=== PATIENT | female | born 2000 | race Caucasian/White ===

== ENCOUNTER 2024-09-09 21:42 | Emergency (ER) | payer OTHER, BC, SELFPAY ==
--- OUTSIDE RECORDS SUMMARY | 2024-09-09 21:45 | XMS_ITS | Encounter Summary ---
Author Organization [facility] [place] [address] Care Team Providers Care School Cleaner Name Role Phone Jimbo Lee Primary Care Provider Rony gregory Reason for Visit * Reason Comments Skin Exam * Consultation (Routine) - Incomplete Specialty Diagnoses / Procedures Referred By Trudy goode Referred To Contact Dermatology Diagnoses Atypical nevus Procedures CONSULT TO DERMATOLOGY Juan Antonio Rivas MD [address] [place] [address] Phone: tel: fax: [facility] [address] [place] [address] Phone: tel: fax: Referral ID Status Reason Start Date Expiration Date Visits Requested Visits Authorized [id number] Incomplete Transition of Care (12) 04/17/2024 05/17/2025 1 1 Encounter Details Date Type Department Care Team (Late st Contact Info) Description 08/24/2024 9:30 AM CDT Office Visit [facility] Dermatology Lower Level [address] [place], [place] [id number] Laz Pierre MD [address] [place], [place] [id number] Acne excoriee (Primary Dx); Multiple benign nevi; Impetigo Social History Tobacco Use Types Packs/Day Years Used Date Smoking Tobacco: Never Smokeless Tobacco: Never Alcohol Use Standard Drinks/Week Comments Not Asked 0 (1 standard drink = 0.6 oz pur e alcohol) Financial Resource Strain Answer Date R ecorded Overall Financial Strain 99 022 Skipped Doctor's Visit 3 2 Skipped Medication due to cost 3 0 07/22/2021 Utility Shut-offs 3 07/22/2021 Comments No Sex and Gender Information Value Date Recorded Sex Assigned at Not on file Legal Sex Female 11:01 PM CDT Gender Identity Not on file Sexual Orientation Not on file documented as of this encounter Patient Instructions * Patient Instructions* Nesha Nagel - 08/24/2024 9:30 AM CDT SUN PROTECTION TIPS Recommend a physical block (mineral sunscreen) that contains zinc oxide (SPF 30 or higher). Facial sunscreen: Renan Cleveland MD UV elements broad spectrum SPF 44 facial sunscreen, oil free. Epionce Ultra Shield Lotion SPF 50 (love this one for the face). https://www.epiAnaquace.Ogin Stick sunscreen: Neutrogena Sheer Zinc Vitamin E Sunscreen Stick - SPF 50 (great for sports and kids). Body and face: CeraVe Hydrating Sunscreen SPF 30 or 50 Vanicream Broad Sprectrum SPF 30 (for sensitive skin) Burnout (www.Simpler or YYoga) Keerthi-Posay SPF 50 Mineral Anthelios-Sunscreen gentle lotion Sun Bum (sold in most stores with a pharmacy). Https://www.sunbum.Ogin Exposure to the sun's invisible ultraviolet light (UV) is the most preventable cause of skin cancers, including melanoma, for most people. It is also responsible for skin aging and contributes to skin discoloration over time. Protecting your skin from UV light, and regular skin self-exams are important steps to preventing and catching skin cancers early. Below are a few tips about Sun Safety and Sun Protection. UV light There are three components of UV light: o UVA: least powerful UV rays but the most abundant on earth and present year round; UVA penetratesthrough window glass and contributes to skin aging (wrinkles and age spots) as well as skin cancer.Best prevented with barrier clothing and zinc oxide. o UVB: more powerful than UVA, these rays are partially absorbed by the ozone layer. UVB exposure is the primary cause of sunburn and a risk factor for skin cancer and skin aging. UVB levels are highest between 10am-4pm and in the summer. Best prevented with barrier clothing and zinc oxide. o UVC: most powerful UV ray and highly toxic to skin and lungs.. Fortunately, UVC is mostly absorbed by the ozone layer in the atmosphere, although it can be generated by air pollution on hot days. Risks of UV exposure o Sun burn o Development of pre-cancerous lesions called actinic keratoses o Increased risk of non-melanoma skin cancer o Increased risk of melanoma skin cancer o Premature skin aging and discoloration o Cataracts and eye damage o Suppression of the immune system UV light from the sun or tanning beds/sun lamps has been declared as a known carcinogen (cancer causing substance) by the [place] Department of Health and Human Services. Furthermore, tanning beds use UVAlight, which does not trigger protective responses in the skin the same way that UVB light does following a sunburn, so although the skin is jaspal it is not necessarily more protected from the damaging effects of the sun. It is illegal for children under the age of 16 to use an indoor tanning bed in [place]. Sun Protection Avoid direct sun exposure between 10am and 4pm. These are peak hours of the day when UV rays are strongest. Seek shade and use sun protection during these times of day. The UV Index, developed by theA and National Weather Service, can help you find out if the sun???s rays will be strong on any given day and based on your geographic location. This is available online and in phone apps like [employer] UV Index: 2 or less: low 3 to 5: moderate 6 to 7: high 8 to 10: very high 11+: extreme Note: some medications such as doxycycline can increase your sensitivity to UV light, as do certainmedical conditions such as lupus erythematosus Stay in the shade. Shade is better than direct sunlight, but does NOT provide full protection. UV rays reflect off of many surfaces including sand, snow, water, or concrete. Additionally, they can penetrate through tree cover and fabrics that are not UPF (Ultraviolet Protection Factor, see below) rated. Clear window glass does NOT protect from UVA rays. Higher altitudes have both reflected UV rays from snow and a higher concentration of UV light. Remember your sun protection on bright winter skiing vacations as well. Protect your eyes and lips. Protect your lips by applying lip balm that contains sunscreen and reapply regularly as you would sunscreen. The lower lip is especially vulnerable as it is more exposed. Wear sunglasses to protect the skin of your eyelids, which can be difficult to completely cover without getting sunscreen into the eyes by accident. Sunglasses can also help protect the eyes themselves from getting sun damaged over time. Polypodium leucomotos: this is marketed as an herbal supplement and antioxidant that is reported toconcentrate in the skin (Heliocare is one example of a brand). It has shown limited benefit in casereports for sun-sensitive disorders like polymorphous light eruption (PMLE) and systemic lupus erythematosus (SLE). It is definitely not a substitute for sunscreen and has not undergone the same kinds of rigorous testing by the Food and Drug Administration (FDA) that other sunscreens have. It has also not been tested in people < 18 years old or women. But it has been used in [place] for years with a good safety profile and may be a helpful addition to existing sun safety measures forthose patients who are interested in oral or herbal approaches to sun protection. Nicotinamide/niacinamide: This is a form of vitamin B3 that is not associated with flushing, as occurs with niacin (nicotinic acid) that is sometimes used to raise HDL (good) cholesterol. A randomized, controlled trial showed modest benefit in decreasing the risk of new non-melanoma skin cancers and precancers in individuals with a history of at least 2 skin cancers in the previous 5 years whentaken at a dose of 500mg twice daily. Sunscreen SPF (Sun Protection Factor) is a rating of the amount of protection from UVB radiation offered by asOpenSpacecreen. Choose sunscreen with an SPF of a at least >30; higher numbers are more effective, but also more expensive. An SPF of 30+ should suffice for most activities, as long as reapplication directions are followed according to the devulcanizer operator's instructions. Choose sunscreen that is ???Broad Spectrum?? , which will protect against UVA and UVB rays. Two classes of sunscreens exist: Chemical absorbers: common ingredients that protect against UVB include cinnamates, salicylates, PABA, padimate-O, octocrylene, octinoxate. Common ingredients that protect against UVA in chemical absorbers: avobenzone (parsol 1789), benzophenone, oxybenzone, and mexoryl. *Oxybenzone is highly damaging to coral reefs and allergenic, meaning many patients can develop an allergic rash to it, so I donot recommend products with it. Physical blockers: the physical blockers titanium dioxide and zinc oxide protect against BOTH UVA and UVB. Of the two, zinc oxide does a better job. Physical guilherme sunscreens are recommended for people with sensitive skin and children over 6 months of age. All of the big sunscreen manufacturers such as [employer] and [employer] offer both physical and chemical sunscreen lines. Tinted sunscreens: these typically contain ferric oxide, which has been shown to filter out certainparts of white or so-called visible light--all the colors of the rainbow such as red, orange, yellow, green, blue, and toby light that we can see and are exposed to from lamps, streetlights, TV/computer/cell phone screens, etc. Tinted sunscreens are usually only recommended for a handful of skin conditions, the most common of which is melasma. Apply sunscreen 15 minutes before sun exposure and use enough to generously coat all exposed skin. Reapply to all exposed areas every 2 hours, or every 80 minutes if using a water- or sweat-resistantsunscreen. It takes about 1 ounce of sunscreen to cover exposed surfaces in an adult, so the meticulous patient will go through 1 beach-sized bottle of sunscreen (~6.4oz) a week. The formulation of sunscreen is up to you! Many men prefer sprays for hair-bearing areas, while children often like the feel of foams. Whether you use a sunscreen cream, gel, stick, spray or foam is a matter of personal preference as long as you apply enough of it. Ultimately, if you follow the above guidelines, the brand of sunscreen is irrelevant. I recommend physical blocking agents whenever possible, but the best sunscreen is the one that you will use!!! Common examples of brands that offer broad spectrum protection are: Neutrogena, Coppertone, Blue Lizard, SunBum, Bare Republic, Keerthi-Posay, and Hang Ten. Please visit the Skin Cancer Foundation at http://www.skincancer.org/products/categories for more examples of brands Sun protective clothing Cover your head with a wide-brimmed hat (4 inches or wider). Clothes are an excellent source of protection from the sun, but not all clothing offers the same amount of protection from UV light. Wet clothing provides almost NO protection from UV. Dark clothes are better than white clothes at filtering out UV, but weave and fabric type are stronger determinants of how much protection will be offered than color. Thicker weaves and clothes made of nylon or Dacron provide comparatively more protection than cotton. Specially designed UPF (UV protective factor) clothing provides great protection from the sun without the need for reapplication of sunscreen. Look for UPF 30 or higher, and be awarethat the UPF factor can decrease over a lifetime of the clothing as it is used. Brand of UPF clothing doesn???t matter. Common manufacturers include: Coolibar, UV Skinz, [place], Brooks etc. Please visit the Skin Cancer Foundation at http://www.skincancer.org/products/categories for more examples of brands Learn more about sunprotection, skin aging and skin cancer at these other websites: [place] Academy of Dermatology: www.aad.org [place] Society for Dermatologic Surgery: www.asds.net [place] College of Mohs Surgery: http://www.skincancermohssurgery.org After Transplantation, Reduce Incidence of Skin Cancer (for transplant patients): http://www.at-risc.org/ Self Skin Checks: -Perform skin self-exams regularly to become familiar with existing growths and to notice any changes or new growths. You might consider taking photos of any moles you have on your cell phone for monitoring. -Call us should you notice any new, rapidly growing, tender, spontaneously bleeding, non-healing lesions. -Look for the ABCDEs of atypical nevi and melanoma and call us should you notice any: A: asymmetry: cutting it into 4 equal parts, no 2 parts look the same B: borders: shape is not nice and round or oval but has what look like little extensions, or 'arms'and 'legs', coming off of it C: color: 3+ more colors, red, blue/black, loosing color D: diameter larger than a pencil eraser in combination with one of the other ABCDEs E: evolving or changing to develop the above features. Vitamin D -Daily vitamin D intake recommendations through either diet (vitamin D rich food) and/or xeca-nqm-daizeel dietary supplements by age group are as follows: Daily recommendations Infants <1 year of age - 400 international units Adults <70 years of age- 600 international units Adults >70 years of age- 800 international units The ABCDEs of Skin Cancer The ABCDEs of skin cancer are a method to check if any mole or spot, new or existing is changing Incolore shape or size. Melanoma can be life threatening and early diagnosis and removal is recommended. If you note a changing mole or lesion, please call and report this change and follow up with an appointment as soon as possible. Asymmetry Asymmetry can be assessed by comparing one half of the growth to the other half to determine if thehalves are equal in size. Essentially, one half does not match the other half. Unequal or asymmetric moles are suspicious. Border If the mole's border is irregular, notched, ragged, scalloped, blurred or indistinct, it is more likely to be cancerous (or pre-cancerous) and is thus suspicious. Color The pigmentation is not uniform and/or there is a variation of color (e.g., more than one color or shade) within a mole. Different shades of browns, stapleton, blues, reds, whites, and blacks are all concerning. Dashes of red, white, and blue can add to the mottled appearance. Diameter Any mole that has a diameter larger than a pencil's eraser in size (> 6 mm) should be consideredsuspicious; however, melanomas can be smaller. Evolving A mole or skin lesion that looks different from the rest or is changing in size, shape, or color. Delayed healing A mole or skin lesion (may look like a pimple, bug bite, or like a cut on the skin) that is not healing in a time frame that is normal for your skin should also be evaluated for skin cancer. Skin Self-Exam Instructions Please do a skin self-exam every month and monitor your moles regularly! Examine your body front and back in a floor-length mirror, then look at the right and left sides with your arms raised. Bend elbows and look carefully at forearms, upper underarms and palms. Look at the backs of your legs and feet, the spaces between your toes, and the soles of your feet. Examine the back of your neck and scalp with a hand mirror reflecting against the floor-length mirror you are standing in front of. Part your hair for a closer look and use a blow dryer on the low setting to part your hair in different ways. You may also ask your instructor hairspring to periodically check your scalp for any new or changing lesions. Finally, check your back and buttocks with a hand mirror reflecting against the floor-length mirroryou are standing in front of. Please take a moment to look online at the [place] Academy of Dermatology website (aad.org) for visuals, more information and pictures of skin cancer. Dermatology E-visits If you have a new lesion of concern and would like to have it evaluated as quickly as possible, Dermatology is offering a new method of care to meet your needs. If you have a new lesion (any kind of growth or spot) you can answer a series of questions in payasUgym and submit them to a [facility] Dermatology provider. Your answers, along with your medical recordinformation, give the provider the information needed to treat you. You will receive a response within no more than 3 business days. Get Started with an e-Visit: Log into payasUgym, then select the e-Visits option Fees The standard fee for an e-Visit is $30. Some [place] [employer] Insurance plans will cover a portion of this fee (Please refer to your Schedule of Benefits). If there is a fee for your e-Visit, you must enter credit card information at the start of your e-Visit so the card can be authorized. The fee will be charged to your credit card the night following your completed e-Visit. If your e-Visit is canceled, you will not be charged. You may cancel your e-Visit any time before you submit it. After you submit it, if [facility] determine you should be seen in person instead of treated by e-Visit, you will be notified that your e-Visit has been stopped and you will not be charged for the e-Visit. Why Submit an e-Visit? Convenience: No need to wait for an appointment or go to the clinic when you have a concern. If thearea of concern warrants a visit, you will be contacted for an expedited appointment. Privacy: e-Visits take place privately in [place] and will become part of your payasUgym record. Who Can Submit an e-Visit? [facility] e-Visits are available to adults (18 and older) who have seen their [facility] Dermatology provider and a [facility] payasUgym account. Frequently Asked Questions What is an e-Visit? An e-Visit is an electronic visit between a patient and provider about a non- emergency health care concern. For certain symptoms (currently new spots of concern), you can answer a series of questionsin payasUgym as well as send up to 6 photos. Your answers, along with your medical record information, give your [facility] Dermatology provider the information needed to treat you. What is included in a [facility] e-Visit? The fee pays for the review of your e-Visit answers, review of your medical record and treatment recommendations (if necessary). The fee does not include the cost of other services such as prescription drugs, laboratory tests or X- rays, if any of these are needed. Can I submit an e-Visit for someone else? No. For patient safety reasons, it is important that you do not submit e-Visits regarding other people from your [facility] account. Even for spouses, parents or others covered by the same insurance plan, you must only submit your own medical information from your [facility] account. Your e-Visit will besent directly to your [facility] medical record. The provider that handles your e-Visit will review y our medical history along with the information you provide in your e-Visit to determine the appropriate treatment recommendation for you. To ensure that your medical record contains the correct information now and, in the future, you must not submit e-Visits regarding other people. If you have payasUgym proxy access to another person over the age of 18, you can submit an e-Visit regarding that person from his or her account. To do this, connect to the other person's account by clicking the buttonwith his or her name in the Accounts bar at the top of the screen, and send the e-Visit from withinhis/her account. Will my insurance pay for an e-Visit? Most insurance companies do not cover the cost of an e-Visit. For this reason, [facility] does not file an e-Visit insurance claim on your behalf unless you have coverage through a [place] plan with thee-Visit benefit. If you have a [place] plan that covers e-Visits, the fee displayed is your copay amount. [facility] will file the claim for the full cost of the e-Visit to [place] for patients whose plans cover e-Visits. If you do not have a [place] plan with the e-Visit benefit, [facility] will not submit a claim for your e-Visit. Will my flex spending program cover the cost of an e-Visit? It is likely that your Medical Flexible Spending Account (FSA) program will cover the cost of an e-Visit. Check with your FSA program to see if this is a covered expense. What if I need to be seen in person? When the [facility] provider reviews your answers and medical record, he or she might determine thatyou should be seen in person instead of being treated through an e-Visit. In this case the providerwill contact you via payasUgym or by phone. When this occurs, you will not be charged for the e-Visit. How does a Dermatology e-Visit work? You begin an e-Visit by selecting lesion of concern (Dermatology). Next, you will enter contact andcredit card information. Then, based on the symptom you select, you will be asked a series of questions including treatments and medications you have tried. The questions are designed for the particular issue you have selected. When you have completed all the questions you will see a preview of your responses, and you may change any answer at this time. Once you determine the information is complete and accurate, you submit the e-Visit to [facility]. It is at this point that the fee is applied to your credit card. If you cancel prior to clicking Submit, your credit card will not be charged. How long does an e-Visit take? Plan to spend 10-15 minutes to complete your e-Visit. You cannot save a draft to continue later. Who will respond to my e-Visit? Your e-Visit will be handled by a [facility] Dermatology provider (with whom you are established) When will I receive a reply? Your Dermatology provider will review your answers along with your medical record and respond within 3 business days (Saturday-Saturday excluding holidays). How will I be contacted? Usually you will receive your e-Visit response in payasUgym. In some cases, a provider might decide it is best to speak with you by phone. You will be asked to provide a phone number where we can reachyou in the event we need to speak directly. Who will see my e-Visit? [facility] e-Visits become part of your permanent [facility] medical record and will be available to those who participate in your care and treatment now and in the future. If at any time your symptoms worsen and you feel you should be seen, do not hesitate to call your Dermatology Clinic or [facility] urgent care clinic. If you are experiencing a life- or limb-threatening injury or illness, please call 911 immediately. documented in this encounter Progress Notes * Laz Pierre MD - 08/24/2024 9:30 AM CDT Assessment & Plan Acne excoriee - Minocycline HCl (Minocin) 100 MG cap; Take 1 pill po bid with food Dispense: 60 cap; Refill: 2 - Clindamycin Phos-Benzoyl Perox 1.2-5 % gel; Apply to entire face daily Dispense: 45 g; Refill: 11 - Discussed treatment with doxycycline or minocycline. If better in a month, recommend continuing to take it for at least one more month to reduce risk of flare/recurrence - Discussed scarring with picking/scratching/squeezing Multiple benign nevi - Submit e-visit (best) or call and speak to triage nurse (not metal casket maker) for concerning lesions. Reassurance for benign lesions - Sunscreen (SPF 30+) if out more than 20 min and reapply every 2 hrs, seek shade, avoid peak hours(10-4). Impetigo: on two lesions on face - Mupirocin 2 % ointment; Apply to open areas on face three times a day x 2 weeks Dispense: 22 g; Refill: 0 Return in about 3 months (around 11/23/2024) for Acne. History Nikki Jenkins is a 24 year old female here for evaluation of lesions on the back, particularly one larger mole on L back She also reports issues with acne that comes and goes, and varies between small and large pimples. Had spot on forehead for years. Admits she does pick/squeeze regularly but if she doesn't it gets worse Personal hx of skin cancer: No Family hx of skin cancer: No Exam/Data Scattered benign nevi on back. Reddish brown papule oval plaque L scapula with uniform rim of medium brown pigment AV: Scattered small inflammatory papules and comedones on the face. Large inflamed excoriated plaque R glabella and below R lateral lower lip which both appear to be impetiginized. Attestation This document serves as a record of the services and decisions personally performed and made by Laz Pierre MD. It was created on his behalf by me, Nesha Nagel, a trained certified medical coding specialist. The creation of this document is based on the provider's statements to the certified medical coding specialist. The information in this document, created by the certified medical coding specialist for me, accurately reflects the services I personally performed and the decisions made by me. I have reviewed and approved this document for accuracy. Laz Pierre MD, 04/07/25, 9:56 AM. * Paulo Dover MA - 08/24/2024 9:30 AM CDT Nikki Jenkins is a 24 year old female who is here for a skin exam. Concerns: Face and back Personal hx of skin cancer: No Family hx of skin cancer: No Sunscreen: Yes Tanning bed: No documented in this encounter Plan of Treatment Upcoming Encounters Date Type Department Care Team (Late st Contact Info) Description 11/23/2024 8:45 AM CDT Office Visit [facility] Dermatology Lower Level [address] [place] [id number] Laz Pierre MD [address] [place] [phone] documented as of this encounter Visit Diagnoses Diagnosis Acne excoriee- Primary Other acne Multiple benign nevi Benign neoplasm of skin, site unspecified Impetigo documented in this encounter Care Teams School Cleaner Relationship Specialty Start Date End Date Jimbo Lee [address] [place] [address] PCP - General 11/30/23 documented as of this encounter
--- OUTSIDE RECORDS SUMMARY | 2024-09-09 21:45 | XMS_ITS | Referral Summary ---
Author Organization [facility] and [facility] - [facility] [place] [address] Care Team Providers Care Signal Maintenance Technician Name Role Phone Jimbo Lee Primary Care Provider Rony gregory Source Comments The [facility] EMR consists of medical records from all [facility] ([facility]), the [facility] ([facility]), [facility], as well as other affiliates or partners, to include: [facility] in [place], [place], [facility], [facility], [facility], [facility], [facility], [place] [facility] ([facility]), [place] [facility], and [facility]. The EMR may not contain all information available for this patient pursuant to the Care Everywhere program, as well as varying phases of implementation.[facility] and [facility], [facility] Encounters Date Type Department Care Team Description 08/24/2024 9:30 AM CDT Office Visit [facility] Dermatology Lower Level [facility] [address] [place], [place] [phone] Laz Pierre MD Acne excoriee (Primary Dx); Multiple benign nevi; Impetigo from Last 3 Months Allergies No known active allergies Medications * This document contains information received from the source organization and may not represent a complete record from that organization. * Medications may not be up to date as of this document. Always verifycurrent medications with the patient. albuterol HFA 108 (90 BASE) MCG/ACT inhaler Inhale. As directed Active VITAMIN D3 PO Take 2,000 units by mouth one time daily. Active MULTIVITAMIN PO Acti ve Sertraline HCl (Zoloft) 25 MG tab Take 25 mg by mouth. 05/11/2020 Active Levonorgestrel- Ethinyl Estradiol 0.15-30 MG-MCG per tab Take 1 tab by mouth. 12/10/2019 Active Minocycline HCl (Minocin) 100 MG capIndications: Acne excoriee Take 1 pill po bid with food 60 cap 2 08/24/2024 Active Clindamycin Phos-Benzoyl Perox 1.2-5 % gelIndications: Acne excoriee Apply to entire face daily 45 g 11 08/24/2024 Active Mupirocin 2 % ointmentIndicat ions:Impetigo Apply to open areas on face three times a day x 2 weeks 22 g 08/24/2024 Active Active Problems Problem Noted Date Diagnosed Date Right knee pain 05/09/2015 Left wrist pain 05/09/2015 Immunizations Immunization Administration Dates Next Due Tetanus/Diphtheria/Acellular Pertussis (Tdap) Vaccine (> 7 Yrs) 05/13/2019 Social History Tobacco Use Types Packs/Day Years [...] on file Sexual Orientation Not on file Last Filed Vital Signs Vital Sign Reading Time Taken Comments Blood Pressure 142/96 05/13/2020 4:46 AM VIDEO PRODUCTION SPECIALIST Pulse 80 05/13/2020 4:46 AM VIDEO PRODUCTION SPECIALIST Temperature 36.6 C (97.8 F) 05/13/2020 4:46 AM VIDEO PRODUCTION SPECIALIST Respiratory Rate 16 05/13/2020 4:46 AM VIDEO PRODUCTION SPECIALIST Oxygen Saturation 97% 05/13/2020 4:46 AM VIDEO PRODUCTION SPECIALIST Inhaled Oxygen Concentration - - Weight 72.6 kg (160 lb) 05/27/2019 4:34 PM VIDEO PRODUCTION SPECIALIST Height 180.3 cm (5' 11) 02/18/2018 8:52 AM CDT Body Mass Index - - Plan of Treatment Upcoming Encounters Date Type Department Care Team (Late st Contact Info) Description 11/23/2024 8:45 AM CDT Office Visit [facility] Dermatology Lower Level [address] [place], [place] [phone] Laz Pierre MD [address] [place], [place] [phone] Insurance [facility] STATE AND LOCAL [employer] [facility] STATE AND LOCAL Care Teams Signal Maintenance Technician Relationship Specialty Start Date End Date Jimbo Lee [address] [place] [address] PCP - General 11/30/23
--- OUTSIDE RECORDS SUMMARY | 2024-09-09 21:45 | XMS_ITS | Clinical Summary ---
Author Organization [facility] and [facility] [place] [address] Care Team Providers Care Concrete Journeyman Name Role Phone Jimbo Lee Primary Care Provider Rony gregory Source Comments The [facility] EMR consists of medical records from all [facility] and [facility] ([facility]), the [facility] ([facility]), [facility], as well as other affiliates or partners, to include: [facility] in [place], [place], [facility], [facility], [facility] [place], [facility] [place], [facility], [place] [facility] ([facility]), [place] [facility], and [facility]. The EMR may not contain all information available for this patient pursuant to the Care Everywhere program, as well as varying phases of implementation.[facility] Allergies No known active allergies Medications * [...] knee pain 05/09/2015 Left wrist pain 05/09/2015 Encounters Date Type Department Care Team Description 08/24/2024 9:30 AM CDT Office Visit [facility] Dermatology Lower Level [address] [place] [phone] Laz Pierre MD Acne excoriee (Primary Dx); Multiple benign nevi; Impetigo from Last 3 Months Immunizations Immunization Administration Dates Next Due Tetanus/Diphtheria/Acellular [...] Comments Blood Pressure 142/96 05/13/2020 4:46 AM RF TEST ENGINEER Pulse 80 05/13/2020 4:46 AM RF TEST ENGINEER Temperature 36.6 C (97.8 F) 05/13/2020 4:46 AM RF TEST ENGINEER Respiratory Rate 16 05/13/2020 4:46 AM RF TEST ENGINEER Oxygen Saturation 97% 05/13/2020 4:46 AM RF TEST ENGINEER Inhaled Oxygen Concentration - - Weight 72.6 kg (160 lb) 05/27/2019 4:34 PM RF TEST ENGINEER Height 180.3 cm (5' 11) 02/18/2018 8:52 AM CDT Body Mass Index - - Plan of Treatment Upcoming Encounters Date Type Department Care Team (Late st Contact Info) Description 11/23/2024 8:45 AM CDT Office Visit [facility] Dermatology Lower Level [address] [place], [place] [phone] Laz Pierre MD [address] [place], [place] [phone] Insurance [facility] STATE AND LOCAL [facility] STATE AND LOCAL Care Teams Concrete Journeyman Relationship Specialty Start Date End Date Jimbo Lee [address] [place] [address] PCP - General 11/30/23
[2024-09-09 21:56] VITALS: BP 132/71; PULSE 89; RESP 18; TEMP 36.9; O2SAT 99; BMI 23.7
--- NOTE | 2024-09-09 23:10 | ED.ALLEREA ---
HPI - Allergic Reaction General Time Seen by Provider: 23:10 Date Seen: 09/09/24 Chief complaint: Allergic Reaction Stated complaint: allergic reaction/hives Time Seen by Provider: 09/09/24 23:10 Source: patient, RN notes reviewed and old records reviewed Mode of arrival: ambulatory Limitations: no limitations History of Present Illness HPI narrative: This patient is coming into the ER tonight with hives. She has been taking Zyrtec and Pepcid, took it prior to coming in. She was given 10 mg dexamethasone yesterday afternoon in urgent care. She started with hives yesterday morning. She has never had them this bad before. She has had hives since age 14 about a couple times a week. These would only typically come out in 1 or 2 spots or dots, then would resolve. Yesterday she had him all over her neck, on her elbows. It is now on her forehead, on her feet. She has some spots elsewhere. She does have exercise-induced asthma but is not wheezing. She felt when she was laying down it felt a little harder to breathe earlier. She is feeling better now. No abdominal pain, no nausea or vomiting. No oral pharyngeal involvement. She was started on minocycline by director strategic planning a few weeks ago for cystic acne. She did not take it today. Did review her note from urgent care yesterday. complaint: hives Related Data Home Medications ?Medication ?Instructions ?Recorded ?Confirmed albuterol sulfate 90 mcg/actuation inhalation PRN 09/08/24 09/08/24 aerosol inhaler clindamycin 1.2 % (1 % topical DAILY 09/08/24 09/08/24 base)-benzoyl peroxide 5 % topical gel drospirenone (contraceptive) 4 mg 1 tab PO DAILY 09/08/24 09/08/24 (28) tablet (Slynd) minocycline 100 mg capsule 100 mg PO BID 09/08/24 09/08/24 mupirocin 2 % topical ointment topical 3XD 09/08/24 09/08/24 sertraline 25 mg tablet mg PO 09/08/24 09/08/24 sertraline 50 mg tablet mg PO 09/08/24 09/08/24 Previous Rx's ?Medication ?Instructions ?Recorded hydrocortisone 2.5 % topical cream 1 applic topical BID PRN itching 09/08/24 #20 grams hydroxyzine HCl 25 mg tablet 25 mg PO QID PRN #20 tabs 09/09/24 Allergies Allergy/AdvReac Type Severity Reaction Status Date / Time No Known Drug Allergies Allergy Verified 09/09/24 21:58 Review of Systems Narrative As per HPI. PFSH PFS Social History Smoking Status: Never smoker Second hand tobacco smoke exposure: No How often do you have a drink containing alcohol: never AUDIT-C Alcohol total score: 0 Non-prescribed substance use: denies use Exam Const: Vital Signs, click to edit/add: Vital Signs - 24 hr 09/09/24 21:56 09/09/24 23:39 Temperature 98.5 F 98.5 F Pulse Rate [Right Pulse Oximeter] 89 81 Respiratory Rate 18 18 Blood Pressure [Ri ght Upper Arm] 132/71 125/68 Pulse Oximetry 99 99 Oxygen Delivery Me thod Room Air Room Air This 24-year-old female is alert, interactive, no apparent distress. She has a plaque of your urticaria on her right forehead. Pupils equal round reactive, sclerae clear, extraocular muscles intact. Nares in oropharynx, lips without any involvement. Posterior pharynx is normal. Speech is normal, no hoarseness. Neck is supple, no adenopathy. She has a few small isolated your urticaria on her back. Lungs are clear, good air entry, no wheezing or crackles, no tachypnea. CV regular rate and rhythm, no murmur, normal S1-S2, no S3-S4. Abdomen is soft, nontender, nondistended, no organomegaly. Her feet have hives on them. Documenting provider has reviewed patient's vital signs: yes Course Course ED Course: Discussed with patient the recommendation for ongoing steroids. I do think there is a chance that the minocycline could be causative etiology. Only way to know for sure is to follow up with an cut roll machine offbearer and get tested in the future. In the meantime, would have her continue with the Zyrtec and the Pepcid, take both twice a day, she has these at home. Will put in a prescription for Vistaril, she can pick this up in the morning. We discussed to use this for breakthrough hives despite outline treatments. She is aware that if worsening, respiratory symptoms, oral pharyngeal symptoms, needs emergent re-evaluation. I do not feel that she needs epinephrine at this time, we did discuss this in when we would give it, she does not feel she requires this medicine at this time either. Will give her prednisone from [facility]. Vital Signs Vital signs: Initial Vital Signs Respiratory Effort Normal, Spontaneous, Non-Labored 09/09/24 21:51 Respiratory Depth Normal 09/09/24 21:51 Respiratory Pattern Normal 09/09/24 21:51 Vital Signs Temperature 98.5 F 09/09/24 21:56 Pulse Rate 89 09/09/24 21:56 Respiratory Rate 18 09/09/24 21:56 Blood Pressure 132/71 09/09/24 21:56 Pulse Oximetry 99 09/09/24 21:56 Oxygen Delivery Method Room Air 09/09/24 21:56 Temperature 98.5 F 09/09/24 23:39 Pulse Rate 81 09/09/24 23:39 Respiratory Rate 18 09/09/24 23:39 Blood Pressure 125/68 09/09/24 23:39 Pulse Oximetry 99 09/09/24 23:39 Oxygen Delivery Method Room Air 09/09/24 23:39 Discharge Plan Discharge Clinical Impression: Urticaria Patient Disposition: Home, Self-Care Condition: Stable Instructions: Urticaria (ED) Additional Instructions: Take prednisone as prescribed, 20 mg twice a day for 5 days, 1st does tonight. Continue with his Zyrtec 10 mg twice daily, Pepcid 20 mg twice daily. Can picker machine operator prescription for hydroxyzine/Vistaril tomorrow, this can be used on top of these medications for breakthrough hives. If your symptoms are worsening, develops oral pharyngeal symptoms, difficulty breathing, do need emergent re-evaluation. Do recommend that you get referred to cut roll machine offbearer, they can do testing to see if you do react the minocycline. In the meantime, do not recommend that you take that antibiotic. Would also not use the Neosporin that you had been using on your cut on your leg. Cool compresses, ice packs can help with active areas of hives. Hot showers, as well as physical activity can bring out hives. Activity Level: Activity as Tolerated Prescriptions: New hydroxyzine HCl 25 mg tablet 25 mg PO QID PRNQty: 20 0RF No Action minocycline 100 mg capsule 100 mg PO BID clindamycin-benzoyl peroxide 1.2 %(1 % base) -5 % gel topical DAILY mupirocin 2 % ointment topical 3XD sertraline 50 mg tablet PO sertraline 25 mg tablet PO Slynd 4 mg (28) tablet 1 tab PO DAILY albuterol sulfate 90 mcg/actuation HFA aerosol inhaler inhalation PRN hydrocortisone 2.5 % cream 1 applic topical BID PRN (Reason: itching) Qty: 20 0RF Follow Up/Referrals: Provider,Not a Local [Primary Care Provider] - Stand Alone Forms: [employer] Info Instructions
--- OUTSIDE RECORDS SUMMARY | 2024-09-09 23:35 | XMS_ITS | Encounter Summary ---
Author Organization [facility] and [facility] [place] [address] Care Team Providers Care Grease Renderer Name Role Phone Jimbo Lee Primary Care Provider Rony gregory Reason for Visit * Reason Comments Skin Exam * Consultation (Routine) - Incomplete Specialty Diagnoses / Procedures Referred By Trudy goode Referred To Contact Dermatology Diagnoses Atypical nevus Procedures CONSULT TO DERMATOLOGY Juan Antonio Rivas MD [address] [place] [address] Phone: tel: fax: [facility] [address] [place] [address] Phone: tel: fax: Referral ID Status Reason Start Date Expiration Date Visits Requested Visits Authorized [id number] Incomplete Transition of Care (12) 04/17/2024 05/17/2025 1 1 Encounter Details Date Type Department Care Team (Late st Contact Info) Description 08/24/2024 9:30 AM CDT Office Visit [facility] Dermatology Lower Level [address] [place], [place] [phone] Laz Pierre MD [address] [place], [place] [phone] Acne excoriee (Primary Dx); Multiple benign nevi; [...] 50 (love this one for the face). https://www.epiBioCryst Pharmaceuticalsce.LUMOback Stick sunscreen: Neutrogena Sheer Zinc Vitamin E Sunscreen Stick - SPF 50 (great for sports and kids). Body and face: CeraVe Hydrating Sunscreen SPF 30 or 50 Vanicream Broad Sprectrum SPF 30 (for sensitive skin) Burnout (www.Cliqset or Syscor) Keerthi-Posay SPF 50 Mineral Anthelios-Sunscreen gentle lotion Sun Bum (sold in most stores with a pharmacy). Https://www.sunbum.LUMOback Exposure to the sun's invisible ultraviolet light [...] use an indoor tanning bed in [place]. Sun Protection Avoid direct sun exposure between [...] online and in phone apps like The [employer] UV Index: 2 or less: low [...] of protection from UVB radiation offered by asMojo Motorscreen. Choose sunscreen with an SPF of a at least >30; higher numbers are more effective, but also more expensive. An SPF of 30+ should suffice for most activities, as long as reapplication directions are followed according to the manager strategic partnerships's instructions. Choose sunscreen that is ???Broad Spectrum?? [...] of the big sunscreen manufacturers such as [employer] Pharmaceuticals and RentMYinstrument.come offer both physical and chemical sunscreen lines. [...] matter. Common manufacturers include: Coolibar, UV Skinz, [place], [place] etc. Please visit the Skin Cancer Foundation at http://www.skincancer.org/products/categories for more examples of brands Learn more about sunprotection, skin aging and skin cancer at these other websites: [place] Academy of Dermatology: www.aad.org [place] Society for Dermatologic Surgery: www.asds.net [place] College of Mohs Surgery: http://www.skincancermohssurgery.org After Transplantation, [...] either diet (vitamin D rich food) and/or nkyk-wgk-vmgczcs dietary supplements by age group are as [...] different ways. You may also ask your executive chairman to periodically check your scalp for any new or changing lesions. Finally, check your back and buttocks with a hand mirror reflecting against the floor-length mirroryou are standing in front of. Please take a moment to look online at the [place] Academy of Dermatology website (aad.org) for visuals, [...] can answer a series of questions in eOriginal and submit them to a [facility] Dermatology provider. Your answers, along with your medical recordinformation, give the provider the information needed to treat you. You will receive a response within no more than 3 business days. Get Started with an e-Visit: Log into eOriginal, then select the e-Visits option Fees The standard fee for an e-Visit is $30. Some [employer] Insurance plans will cover a portion [...] submit it. After you submit it, if [facility] determine you should be seen in person [...] appointment. Privacy: e-Visits take place privately in [place] and will become part of your eOriginal record. Who Can Submit an e-Visit? [facility] e-Visits are available to adults (18 and older) who have seen their [facility] Dermatology provider and a [facility] eOriginal account. Frequently Asked Questions What is an e-Visit? An e-Visit is an electronic visit between a patient and provider about a non- emergency health care concern. For certain symptoms (currently new spots of concern), you can answer a series of questionsin eOriginal as well as send up to 6 photos. Your answers, along with your medical record information, give your [facility] Dermatology provider the information needed to treat you. What is included in a [facility] e-Visit? The fee pays for the [...] submit e-Visits regarding other people from your [employer] account. Even for spouses, parents or others covered by the same insurance plan, you must only submit your own medical information from your [employer] account. Your e-Visit will besent directly to your [facility] medical record. The provider that handles your e-Visit will review y our medical history along with the information you provide in your e-Visit to determine the appropriate treatment recommendation for you. To ensure that your medical record contains the correct information now and, in the future, you must not submit e-Visits regarding other people. If you have eOriginal proxy access to another person over the [...] cost of an e-Visit. For this reason, [facility] does not file an e-Visit insurance claim on your behalf unless you have coverage through a [place] plan with thee-Visit benefit. If you have a [employer] plan that covers e-Visits, the fee displayed is your copay amount. [facility] will file the claim for the full cost of the e-Visit to [place] for patients whose plans cover e-Visits. If you do not have a [place] plan with the e-Visit benefit, [facility] will not submit a claim for your e-Visit. Will my flex spending program cover the cost of an e-Visit? It is likely that your Medical Flexible Spending Account (FSA) program will cover the cost of an e-Visit. Check with your FSA program to see if this is a covered expense. What if I need to be seen in person? When the [facility] provider reviews your answers and medical record, he or she might determine thatyou should be seen in person instead of being treated through an e-Visit. In this case the providerwill contact you via eOriginal or by phone. When this occurs, you [...] and accurate, you submit the e-Visit to [facility]. It is at this point that the [...] Your e-Visit will be handled by a [facility] Dermatology provider (with whom you are established) When will I receive a reply? Your Dermatology provider will review your answers along with your medical record and respond within 3 business days (Saturday-Saturday excluding holidays). How will I be contacted? Usually you will receive your e-Visit response in eOriginal. In some cases, a provider might decide it is best to speak with you by phone. You will be asked to provide a phone number where we can reachyou in the event we need to speak directly. Who will see my e-Visit? [employer] e-Visits become part of your permanent [facility] medical record and will be available to those who participate in your care and treatment now and in the future. If at any time your symptoms worsen and you feel you should be seen, do not hesitate to call your Dermatology Clinic or [facility] urgent care clinic. If you are experiencing [...] call and speak to triage nurse (not mill order scheduler) for concerning lesions. Reassurance for benign lesions [...] behalf by me, Nesha Nagel, a trained medical laboratory specialist. The creation of this document is based on the provider's statements to the medical laboratory specialist. The information in this document, created by the medical laboratory specialist for me, accurately reflects the services [...] Description 11/23/2024 8:45 AM CDT Office Visit [facility] Dermatology Lower Level [address] [place] [phone] Laz Pierre MD [address] [place] [phone] documented as of this encounter Visit Diagnoses Diagnosis Acne excoriee- Primary Other acne Multiple benign nevi Benign neoplasm of skin, site unspecified Impetigo documented in this encounter Care Teams Grease Renderer Relationship Specialty Start Date End Date Jimbo Lee [address] [place] [address] PCP - General 11/30/23 documented as of this encounter
--- OUTSIDE RECORDS SUMMARY | 2024-09-09 23:35 | XMS_ITS | Clinical Summary ---
Author Organization [facility] Address [address] [place] [id number] Care Team Providers Care Ase Certified Technician Name Role Phone Pcp, No Primary Care Provider Unavailabl e Allergies No known active allergies Medications sertraline (ZOLOFT) 25 mg tablet Take 75 mg by mouth. 05/11/2020 Active levonorgestrel-e thinyl estrad, 0.15-30 mg-mcg, (LEVLEN; NORDETTE-28) 0.15-0.03 mg tablet Take 1 Tablet by mouth. 12/10/2019 Active Active Problems No known active problems Social History Tobacco Use Types Packs/Day Years Used Date Smoking Tobacco: Never Smokeless Tobacco: Never Tobacco Cessation:Counseling Given: Yes Alcohol Use Standard Drinks/Week Comments Yes 0 (1 standard drink = 0.6 oz pur e alcohol) Social Connections Answer Date Recorded Frequency of Communication with Friends and Fami ly Not on file 05/20/2021 Financial Resource Strain Answer Date R ecorded Difficulty of Paying Living Expenses Not on file 05/20/2021 Difficulty of Paying Living Expenses Not on file 05/20/2021 Comments Unknown Sex and Gender Information Value Date Recorded Sex Assigned at Not on file Legal Sex Female 6:56 PM CDT Gender Identity Not on file Sexual Orientation Not on file Obstetrics History Last Filed Vital Signs Vital Sign Reading Time Taken Comments Blood Pressure 106/70 09/27/2021 11:20 AM CDT Pulse 68 09/27/2021 11:20 AM CDT Temperature 36.8 C (98.2 F) 09/27/2021 11:20 AM CDT Respiratory Rate - - Oxygen Saturation 99% 09/27/2021 11:20 AM CDT Inhaled Oxygen Concentration - - Weight 77 kg (169 lb 12.8 oz) 10/12/2020 8:06 AM CDT Height 180.3 cm (5' 11) 10/12/2020 8:06 AM CDT Body Mass Index 23.68 10/12/2020 8:06 AM CDT Plan of Treatment Health Maintenance Due Date Last Done Comments Tdap 2012 Depression screening for age 12+ 2013 HIV for age 15-65 2016 HPV series for age 9-26 (1 - 3-dose series) 2016 Chlamydia for age 16-24 2017 Hepatitis C screening for ag e 18-79 2019 Tetanus booster 2021 BMI (ht and wt on same day) for age 18+ 10/12/2021 10/12/2020 Pap test for age 21-65 2022 COVID-19 vaccine series (2023- season) 2024 10/03/2020 Influenza Vaccine (Season Ended) 2025 Pneumococcal series for age 6-49 Aged Out No longer eligible based on patient's age to complete this topic Insurance [employer] OF [employer] Care Teams Ase Certified Technician Relationship Specialty Start Date End Date Pcp, No . PCP - General 10/12/20
--- OUTSIDE RECORDS SUMMARY | 2024-09-09 23:35 | XMS_ITS | Referral Summary ---
Author Organization [facility] [place] [address] Care Team Providers Care Superintendent Fish Hatchery Name Role Phone Jimbo Lee Primary Care Provider Rony gregory Source Comments The [facility] EMR consists of medical records from all [facility] ([facility]), the [facility] ([facility]), [facility], as well as other affiliates or partners, to include: [facility] in [place], [place], [facility], [facility], [facility], [facility], [facility], [place] [facility] ([facility]), [place] [facility], and [facility]. The EMR may not contain all information available for this patient pursuant to the Care Everywhere program, as well as varying phases of implementation.[facility] and [facility] Encounters Date Type Department Care Team Description 08/24/2024 9:30 AM CDT Office Visit [facility] Dermatology Lower Level [facility] [address] [place], [place] [phone] Laz Pierre MD Acne excoriee (Primary Dx); [...] Comments Blood Pressure 142/96 05/13/2020 4:46 AM PICKER FEEDER Pulse 80 05/13/2020 4:46 AM PICKER FEEDER Temperature 36.6 C (97.8 F) 05/13/2020 4:46 AM PICKER FEEDER Respiratory Rate 16 05/13/2020 4:46 AM PICKER FEEDER Oxygen Saturation 97% 05/13/2020 4:46 AM PICKER FEEDER Inhaled Oxygen Concentration - - Weight 72.6 kg (160 lb) 05/27/2019 4:34 PM PICKER FEEDER Height 180.3 cm (5' 11) 02/18/2018 8:52 AM CDT Body Mass Index - - Plan of Treatment Upcoming Encounters Date Type Department Care Team (Late st Contact Info) Description 11/23/2024 8:45 AM CDT Office Visit [facility] Dermatology Lower Level [address] [place], [place] [phone] Laz Pierre MD [address] [place], [place] [phone] Insurance [facility] STATE AND LOCAL [employer] [facility] STATE AND LOCAL Care Teams Superintendent Fish Hatchery Relationship Specialty Start Date End Date Jimbo Lee [address] [place] [address] PCP - General 11/30/23
--- OUTSIDE RECORDS SUMMARY | 2024-09-09 23:35 | XMS_ITS | Clinical Summary ---
Author Organization [facility] [place] [address] Care Team Providers Care Inflated Ball Molder Name Role Phone Jibmo Lee Primary Care Provider Rony gregory Source Comments The [facility] EMR consists of medical records from all [facility] and [facility] ([facility]), the [facility] ([facility]), [facility], as well as other affiliates or partners, to include: [facility] in [place], [place], [facility], [facility] Fertility [facility], [facility], [facility] [place], [facility], [place] [facility] ([facility]), [place] [facility], and [facility]. The EMR may not contain all information available for this patient pursuant to the Care Everywhere program, as well as varying phases of implementation.[facility] Allergies No known active allergies Medications [...] Description 08/24/2024 9:30 AM CDT Office Visit [facility] Dermatology Lower Level [address] [place] [id number] Laz Pierre MD Acne excoriee (Primary Dx); [...] Comments Blood Pressure 142/96 05/13/2020 4:46 AM REGULATORY AFFAIRS MANAGER Pulse 80 05/13/2020 4:46 AM REGULATORY AFFAIRS MANAGER Temperature 36.6 C (97.8 F) 05/13/2020 4:46 AM REGULATORY AFFAIRS MANAGER Respiratory Rate 16 05/13/2020 4:46 AM REGULATORY AFFAIRS MANAGER Oxygen Saturation 97% 05/13/2020 4:46 AM REGULATORY AFFAIRS MANAGER Inhaled Oxygen Concentration - - Weight 72.6 kg (160 lb) 05/27/2019 4:34 PM REGULATORY AFFAIRS MANAGER Height 180.3 cm (5' 11) 02/18/2018 8:52 AM CDT Body Mass Index - - Plan of Treatment Upcoming Encounters Date Type Department Care Team (Late st Contact Info) Description 11/23/2024 8:45 AM CDT Office Visit [facility] Dermatology Lower Level [address] [place], [place] [phone] Laz Pierre MD [address] [place], [place] [phone] Insurance [facility] STATE AND LOCAL [employer] [facility] STATE AND LOCAL Care Teams Inflated Ball Molder Relationship Specialty Start Date End Date Jimbo Lee [address] [place] [address] PCP - General 11/30/23
[2024-09-09 23:39] VITALS: BP 125/68; PULSE 81; RESP 18; TEMP 36.9; O2SAT 99
== END 2024-09-09 23:40 | disposition home or self-care (01) ==
PROVIDERS: Emergency Provider Family Medicine
DX: L50.9 Urticaria, unspecified (principal)
CPT/HCPCS: 99283